=== PATIENT | female | born 1960 | race Two or more races ===

== ENCOUNTER → 2017-04-10 | Outpatient (REF) | payer BC | LOC: M LAB REF 16:39 | PROVIDERS: ATTEND Nurse Practitioner Women's Health | DX: N84.1 Polyp of cervix uteri (principal) ==

== ENCOUNTER → 2017-12-02 | Outpatient (REF) | payer BC | LOC: M SFHCCLAY 16:24 | DX: N30.90 Cystitis, unspecified without hematuria (principal) | CPT/HCPCS: 87186 ==

== ENCOUNTER → 2017-12-31 | Outpatient (REF) | payer BC | LOC: M SFHCCLAY 15:40 | DX: J02.8 Acute pharyngitis due to other specified organisms (principal) ==